=== PATIENT | female | born 1995 | race Caucasian/White ===

== ENCOUNTER 2017-03-31 16:52 | Outpatient (CLI) | END 2017-03-31 16:53 | disposition home or self-care (01) | LOC: AMBL 16:52 → EDBD 16:52 → AMBL 16:53 | PROVIDERS: ATTEND Emergency Medicine | DX: S09.90XA Unspecified injury of head, initial encounter; S29.9XXA Unspecified injury of thorax, initial encounter; V49.9XXA Car occupant (driver) (passenger) injured in unspecified traffic accident, initial encounter ==